=== PATIENT | female | born 1960 | race Caucasian/White ===

== ENCOUNTER 2017-08-12 14:24 | Outpatient (CLI) | payer OTHER | END 2017-08-12 15:53 | disposition home or self-care (01) | LOC: HPC 14:24 | DX: K80.20 Calculus of gallbladder without cholecystitis without obstruction (principal); R10.32 Left lower quadrant pain | CPT/HCPCS: Z7500 ==

== ENCOUNTER 2017-10-28 09:44 | Outpatient (CLI) | payer OTHER | END 2017-10-28 15:29 | disposition home or self-care (01) | LOC: HPC 09:44 | DX: R10.9 Unspecified abdominal pain (principal); R07.9 Chest pain, unspecified; I10 Essential (primary) hypertension; F41.9 Anxiety disorder, unspecified; K80.20 Calculus of gallbladder without cholecystitis without obstruction; K57.30 Diverticulosis of large intestine without perforation or abscess without bleeding; D25.9 Leiomyoma of uterus, unspecified | CPT/HCPCS: Z7500 ==